=== PATIENT | female | born 1955 | race Two or more races ===

== ENCOUNTER 2017-01-04 11:14 | Outpatient (CLI) | payer BC ==
[2017-01-04 17:48] LABS: BASOPHILS % (AUTO) 0.5 %; EOSINOPHILS # (AUTO) 0.2 10^3/uL (0.0-0.7); EOSINOPHILS % (AUTO) 3.2 %; HCT - HEMATOCRIT 39.1 % (37.0-47.0); HGB - HEMOGLOBIN 12.7 g/dL (12.0-16.0); LYMPHOCYTES # (AUTO) 1.9 10^3/uL (1.5-3.5); LYMPHOCYTES % (AUTO) 28.9 %; MEAN CORPUSCULAR HEMOGLOBIN 26.3 pg (27.0-31.0); MEAN CORPUSCULAR HGB CONC 32.5 g/dL (32.0-36.0); MEAN PLATELET VOLUME 8.4 fL (7.9-10.8); MONOCYTES # (AUTO) 0.5 10^3/uL (0.0-1.0); MONOCYTES % (AUTO) 7.1 %; NEUTROPHILS % (AUTO) 60.3 %; RED BLOOD COUNT 4.83 10^6/uL (4.20-5.40); RED CELL DISTRIBUTION WIDTH 13.6 % (12.0-15.0); UNCORRECTED WHITE BLOOD COUNT 6.6 x10^3/uL; WHITE BLOOD COUNT 6.6 x10^3/uL (4.8-10.8)
[2017-01-04 18:00] LABS: ALBUMIN/GLOBULIN RATIO 1.6 (1.0-2.2); BILIRUBIN,TOTAL 0.7 mg/dL (0.2-1.0); BUN - BLOOD UREA NITROGEN 13 mg/dL (6-20); CALCIUM 9.1 mg/dL (8.5-10.3); CARBON DIOXIDE - CO2 27 mmol/L (21-32); CHLORIDE 104 mmol/L (101-111); CHOL/HDL RATIO 4.1 (<4.4); CHOLESTEROL 193 mg/dL; CREATININE 0.8 mg/dL (0.4-1.0); GFR - MDRD 73 (>89); GLUCOSE 97 mg/dL (70-100); HDL CHOLESTEROL 47 mg/dL; LDL/HDL RATIO 2.8 (<4.4); POTASSIUM 4.5 mmol/L (3.5-5.0); SODIUM 137 mmol/L (135-145); TOTAL PROTEIN 6.8 g/dL (6.7-8.2); TRIGLYCERIDES 72 mg/dL; VLDL CHOLESTEROL 14 mg/dL
[2017-01-04 18:11] LABS: TOTAL T3 1.67 ng/mL (0.87-1.78)
[2017-01-04 18:22] LABS: THYROID STIMULATING HORMONE 0.08 uIU/mL (0.34-5.60)
== END 2017-01-04 11:15 | disposition home or self-care (01) ==
LOC: LAB.F 11:14
PROVIDERS: ATTEND Physician Assistant
DX: E55.9 Vitamin D deficiency, unspecified (principal); M81.0 Age-related osteoporosis without current pathological fracture; E07.9 Disorder of thyroid, unspecified; E78.5 Hyperlipidemia, unspecified
CPT/HCPCS: 36415; 80053; 80061; 84439; 84443; 84480; 84481; 84482; 85025

== ENCOUNTER 2017-02-02 13:44 | Outpatient (CLI) | payer BC | END 2017-02-02 13:45 | disposition home or self-care (01) | LOC: LAB.F 13:44 | PROVIDERS: ATTEND Physician Assistant | DX: E55.9 Vitamin D deficiency, unspecified (principal) | CPT/HCPCS: 36415; 82306 ==

== ENCOUNTER 2017-03-28 13:12 | Outpatient (CLI) | payer BC ==
--- NOTE | 2017-03-29 16:49 | Mammography Report ---
DIGITAL SCREENING MAMMOGRAM: 03/28/2017 CLINICAL INDICATION: A 61-year-old nulliparous patient for screening. COMPARISON: 03/2016, 04/2013, 12/2011, 08/2010. TECHNIQUE: Routine CC and MLO projections as well as bilateral laterally exaggerated craniocaudal vi ews were obtained of the breasts. FINDINGS: Parenchymal tissue within both breasts is extremely dense, which lowers the sensitivity of mammography; however, there are no dominant masses, suspicious microcalcifications, or secondary sig ns of malignancy. In comparison to the previous studies, there are no significant changes. IMPRESSION: No mammographic evidence of malignancy. PLAN: Screening mammography is recommended annually. BIRADS category 1 - negative. STANDARD QUALIFYING STATEMENTS 1. This examination was reviewed with the aid of Computed-Aided Detection (CAD). 2. A negative or benign imaging report should not delay biopsy if clinically suspicious findings are present. Consider surgical consultation if warranted. More than 5% of cancers are not identified b y imaging. 3. Dense breasts may obscure an underlying neoplasm. JOB #: [id number] EXT JOB #:[id number]
== END 2017-03-28 13:13 | disposition home or self-care (01) ==
LOC: DI 13:12
PROVIDERS: ATTEND Physician Assistant
DX: Z12.31 Encounter for screening mammogram for malignant neoplasm of breast (principal)
CPT/HCPCS: 77067

== ENCOUNTER 2017-03-28 13:12 | Outpatient (CLI) | payer BC ==
--- NOTE | 2017-03-29 15:09 | DEXA Report ---
DEXA SCAN: 03/28/2017 CLINICAL INDICATION: Postmenopausal. TECHNIQUE: Dual energy x-ray absorptiometry (DXA) was performed on a [employer] system. Regions measured are the AP spine, femoral neck, and, if needed, forearm. COMPARISON: 03/13/2016. In accordance with the International Society for Clinical Densitometry (ISCD) guidelines, data from previous exams may be reanalyzed using current recommendations and techniques. This is done to allow a more accurate basis for comparison with the current study. FINDINGS The data for the lumbar spine is as follows: REGION BMD (g/cm/cm) T-SCORE Z-SCORE L1 0.833 -2.5 -1.0 L2 1.055 -1.2 0.2 L3 1.089 -0.9 0.5 L4 1.079 -1.0 0.4 TOTAL 1.025 -1.3 0.1 NOTE: All evaluable vertebrae are used for classification. The data for the hip is as follows: REGION BMD (g/cm/cm) T-SCORE Z-SCORE Neck 0.859 -1.3 0.1 TOTAL 0.927 -0.6 0.4 NOTE: The femoral neck or total proximal femur, whichever is lowest, is used for classification. DXA RESULTS SUMMARY: Spine SCAN DATE AGE BMD T-SCORE BMD CHANGE VS BASELINE BMD CHANGE VS PREVIOUS 03/28/2017 61 1.025 --- -0.022 -2.1 03/13/2016 60 1.047 --- --- --- * Denotes significant change at the 95% confidence level. Denotes dissimilar scan types or analysis methods. DXA RESULTS SUMMARY: Total hip SCAN DATE AGE BMD T-SCORE BMD CHANGE VS BASELINE BMD CHANGE VS PREVIOUS 03/28/2017 61 0.927 --- 0.017 1.9 03/13/2017 60 0.910 --- --- --- * Denotes significant change at the 95% confidence level. Denotes dissimilar scan types or analysis methods. IMPRESSION 1. THE WHO CLASSIFICATION BASED ON THE INTERNATIONAL REFERENCE STANDARD IS OSTEOPENIA. THE FRACTURE RISK IS INCREASED. 2. THERE HAS BEEN NO STATISTICALLY SIGNIFICANT INTERVAL CHANGE FROM 03/13/2016. RECOMMENDATION: Patients with diagnosis of osteoporosis or osteopenia should have regular bone mineral density assessment. For those eligible for Medicare, routine testing is allowed once every 2 years. Testing frequency can be increased for patients who have rapidly progressing disease or for those who are receiving medical therapy to restore bone mass. COMMENT: World Health Organization (WHO) definitions for osteoporosis and osteopenia: NORMAL BMD: T-score at -1.0 or higher, fracture risk is low. OSTEOPENIA BMD: T-score between -1.0 and -2.5, fracture risk is increased. OSTEOPOROSIS BMD: T-score at -2.5 or lower, fracture risk high. National Osteoporosis Foundation recommends: 1. Obtain adequate dietary calcium (at least 1200 mg per day) and vitamin D (400 -800 international units per day). 2. Participate, as appropriate, in regular weightbearing and muscle- strengthening exercise. 3. Avoid tobacco use and reduce alcohol and caffeine intake. 4. For more detailed information see the website at www.NOF.org. MTDD
== END 2017-03-28 13:13 | disposition home or self-care (01) ==
LOC: DI 13:12
PROVIDERS: ATTEND Physician Assistant
DX: M85.89 Other specified disorders of bone density and structure, multiple sites (principal)
CPT/HCPCS: 77080

== ENCOUNTER 2017-04-11 12:47 | Outpatient (CLI) | payer BC ==
[2017-04-11 17:59] LABS: BASOPHILS % (AUTO) 0.5 %; EOSINOPHILS # (AUTO) 0.2 10^3/uL (0.0-0.7); EOSINOPHILS % (AUTO) 3.8 %; HCT - HEMATOCRIT 40.3 % (37.0-47.0); LYMPHOCYTES # (AUTO) 1.5 10^3/uL (1.5-3.5); LYMPHOCYTES % (AUTO) 25.9 %; MEAN CORPUSCULAR HEMOGLOBIN 26.3 pg (27.0-31.0); MEAN CORPUSCULAR HGB CONC 32.4 g/dL (32.0-36.0); MEAN CORPUSCULAR VOLUME 81.1 fL (81.0-99.0); MEAN PLATELET VOLUME 8.5 fL (7.9-10.8); MONOCYTES # (AUTO) 0.4 10^3/uL (0.0-1.0); MONOCYTES % (AUTO) 6.5 %; NEUTROPHILS # (AUTO) 3.8 10^3/uL (1.5-6.6); NEUTROPHILS % (AUTO) 63.3 %; RED BLOOD COUNT 4.97 10^6/uL (4.20-5.40); RED CELL DISTRIBUTION WIDTH 13.4 % (12.0-15.0)
[2017-04-11 18:19] LABS: ALBUMIN/GLOBULIN RATIO 1.5 (1.0-2.2); BILIRUBIN,TOTAL 0.7 mg/dL (0.2-1.0); BUN - BLOOD UREA NITROGEN 11 mg/dL (6-20); CALCIUM 9.2 mg/dL (8.5-10.3); CARBON DIOXIDE - CO2 26 mmol/L (21-32); CHLORIDE 104 mmol/L (101-111); CHOLESTEROL 207 mg/dL; CREATININE 0.8 mg/dL (0.4-1.0); GFR - MDRD 73 (>89); GLUCOSE 97 mg/dL (70-100); HDL CHOLESTEROL 52 mg/dL; LDL/HDL RATIO 2.7 (<4.4); SODIUM 138 mmol/L (135-145); TOTAL PROTEIN 7.3 g/dL (6.7-8.2); TRIGLYCERIDES 70 mg/dL; VLDL CHOLESTEROL 14 mg/dL
[2017-04-11 18:32] LABS: THYROID STIMULATING HORMONE < 0.08 uIU/mL (0.34-5.60)
[2017-04-11 18:37] LABS: TOTAL T3 2.04 ng/mL (0.87-1.78)
== END 2017-04-11 12:48 | disposition home or self-care (01) ==
LOC: LAB.F 12:47
PROVIDERS: ATTEND Physician Assistant
DX: Z00.00 Encounter for general adult medical examination without abnormal findings (principal); R94.4 Abnormal results of kidney function studies; E78.5 Hyperlipidemia, unspecified; M81.0 Age-related osteoporosis without current pathological fracture
CPT/HCPCS: 36415; 80053; 80061; 82306; 84439; 84443; 84480; 84481; 84482; 85025

== ENCOUNTER 2017-05-03 08:00 | Outpatient (CLI) | payer BC | END 2017-05-03 23:59 | disposition home or self-care (01) | LOC: LAB.F 08:00 | PROVIDERS: ATTEND Physician Assistant | DX: R94.4 Abnormal results of kidney function studies (principal) | CPT/HCPCS: 84156 ==

== ENCOUNTER 2017-05-21 13:21 | Outpatient (CLI) | payer BC ==
--- NOTE | 2017-05-21 14:25 | Ultrasound Report ---
RENAL ULTRASOUND WITH DOPPLER: 05/21/2017 CLINICAL INDICATION: Abnormal renal function. TECHNIQUE: Real-time scanning was performed with sales representative jewelry static images obtained with Doppler. FINDINGS: The right kidney measures 10.5 x 5.9 x 5.1 cm. A small right extrarenal pelvis is incident ally noted. No focal solid renal lesion, perinephric collection, or hydronephrosis is present. Resist kirill indices are normal, varying from 0.63 to 0.68. The left kidney measures 11.0 x 5.4 x 4.7 cm. No hydronephrosis, focal renal lesion, or perinephric c ollection is seen. Resistive indices are normal, varying from 0.61 to 0.65. Prevoid, the urinary bladder measures 9.4 x 9.0 x 8.6 cm, yielding a prevoid volume of 378 mL. Bilate ral ureteral jets are visualized. No focal bladder lesion is identified. Postvoid residual is 11 mL. IMPRESSION: NORMAL RENAL ULTRASOUND. JOB #: [id number] EXT JOB #:[id number]
== END 2017-05-21 13:22 | disposition home or self-care (01) ==
LOC: DI 13:21
PROVIDERS: ATTEND Physician Assistant
DX: R94.4 Abnormal results of kidney function studies (principal)
CPT/HCPCS: 76770; 93975

== ENCOUNTER 2017-06-12 08:00 | Outpatient (CLI) | payer BC | END 2017-06-12 23:59 | disposition home or self-care (01) | LOC: LAB.R 08:00 | PROVIDERS: ATTEND Physician Assistant | DX: Z00.00 Encounter for general adult medical examination without abnormal findings (principal) | CPT/HCPCS: 82270 ==

== ENCOUNTER 2017-09-13 15:55 | Outpatient (CLI) | payer BC ==
[2017-09-13 17:50] LABS: CALCIUM 9.4 mg/dL (8.5-10.3); CREATININE 0.7 mg/dL (0.4-1.0)
== END 2017-09-13 15:56 | disposition home or self-care (01) ==
LOC: LAB.F 15:55
PROVIDERS: ATTEND Physician Assistant
DX: R94.4 Abnormal results of kidney function studies (principal)
CPT/HCPCS: 36415; 80048

== ENCOUNTER 2018-04-04 10:17 | Outpatient (CLI) | payer BC ==
[2018-04-04 18:40] LABS: THYROID STIMULATING HORMONE 0.11 uIU/mL (0.34-5.60)
[2018-04-04 18:42] LABS: FREE T4 (FREE THYROXINE) 0.67 ng/dL (0.58-1.64)
[2018-04-04 18:47] LABS: TOTAL T3 1.46 ng/mL (0.87-1.78)
[2018-04-04 18:59] LABS: AST ASPARTATE AMINOTRANSFERASE 27 IU/L (10-42)
[2018-04-04 19:00] LABS: ALBUMIN 4.3 g/dL (3.2-5.5); ALBUMIN/GLOBULIN RATIO 1.5 (1.0-2.2); ALKALINE PHOSPHATASE 68 IU/L (42-121); ALT ALANINE AMINOTRANSFERASE 25 IU/L (10-60); BILIRUBIN,TOTAL 0.8 mg/dL (0.2-1.0); BUN - BLOOD UREA NITROGEN 16 mg/dL (6-20); CARBON DIOXIDE - CO2 29 mmol/L (21-32); CHLORIDE 100 mmol/L (101-111); CHOL/HDL RATIO 4.4 (<4.4); CHOLESTEROL 229 mg/dL; CREATININE 0.7 mg/dL (0.4-1.0); GFR - MDRD 85 (>89); GLUCOSE 91 mg/dL (70-100); HDL CHOLESTEROL 52 mg/dL; LDL CHOLESTEROL,CALCULATED 160 mg/dL; LDL/HDL RATIO 3.1 (<4.4); SODIUM 135 mmol/L (135-145); TOTAL PROTEIN 7.1 g/dL (6.7-8.2); VLDL CHOLESTEROL 17 mg/dL
== END 2018-04-04 10:18 | disposition home or self-care (01) ==
LOC: LAB.F 10:17
PROVIDERS: ATTEND Physician Assistant
DX: E78.5 Hyperlipidemia, unspecified (principal); E07.9 Disorder of thyroid, unspecified
CPT/HCPCS: 36415; 80053; 80061; 83721; 84439; 84443; 84480; 84481; 84482

== ENCOUNTER 2019-04-26 13:47 | Emergency (ER) | payer BC ==
[2019-04-26 14:11] VITALS: BP 180/90
--- NOTE | 2019-04-26 14:19 | ED Physician Documentation ---
PD HPI OPHTHO - Stated complaint Stated Complaint: RT EYE INJ - Chief complaint Chief Complaint: Heent - History obtained from History obtained from: Patient - History of Present Illness Timing - onset: Yesterday Timing - details: Abrupt onset Pain level now: 5 Location: Right Associated symptoms: Redness, Headache. No: Matting, FB sensation, Double vision, Decreased vision, Loss of vision Contributing factors: Blunt trauma. No: Exposed to conjunctivitis, Wears contacts Similar symptoms before: Has not had sx before Recently seen: Not recently seen - Additional information Additional information: This is a 63-year-old woman who was cleaning out underneath her desk yesterday and there was an elastic lanyard for a name tag. She grabbed it and pulled it was, hung up on something and then it let loose and hit her in the right lower eyelid in the right eye. She said that she saw a "circular saw blades for a little bit". But now her vision seems to be okay other than some underlying issues she is already been dealing with since she had intraocular lens implants. The lower eyelid did bleed and she held pressure. She sees a "divot" out of the lower lid. She took some Tylenol last night for the pain and has a bit of a right-sided headache that she rates now at 4-5 out of 10. She does wear glasses in low light situations but not contacts. Her last tetanus vaccine was greater than 10 years ago. Review of Systems Eyes: reports: Irritation. denies: Loss of vision, Discharge GI: denies: Nausea Neurologic: reports: Headache PD PAST MEDICAL HISTORY - Past Medical History HEENT: Other (Intraocular lens implants bilaterally) - Present Medications Home Medications: Ambulatory Orders Medication Instructions Recorded Confirmed Thyroid,Pork [Drain Thyroid] 15 mg PO 04/26/19 - Allergies Allergies/Adverse Reactions: Allergies Allergy/AdvReac Type Severity Reaction Status Date / Time No Known Drug Allergies Allergy Verified 04/26/19 14:07 PD ED PE NORMAL - Vitals Vital signs reviewed: Yes - General General: Alert and oriented X 3, No acute distress, Well developed/nourished - HEENT HEENT: PERRL, EOMI, Other (There is a subconjunctival hemorrhage 25% of the c onjunctiva on the inferior outer aspect. The lower right eyelid does have an abrasion with a scab overlying it directly on the lid margin but no laceration. There is no hyphema. The retina that is visible has normal vasculature and no obvious hemorrhage in the vitreous.) Results - Vitals Vitals: Vital Signs - 24 hr 04/26/19 14:08 Temperature 36.6 C Heart Rate 81 Respiratory 18 Rate Blood Pressure 180/90 H O2 Saturation 100 Oxygen O2 Source Room air PD MEDICAL DECISION MAKING - ED course Complexity details: d/w patient ED course: No evidence of globe rupture. There is no hyphema. Patient is recommended to use Lacri-Lube to help moisten and just soothe the injury. She is given a note to be off work today and tomorrow. Follow-up if she notices any visual changes. Departure - Departure Disposition: 01 Home, Self Care Clinical Impression: Subconjunctival hemorrhage of right eye Abrasion of eyelid, right Qualifiers: Encounter type: initial encounter Qualified Code(s): S00.211A - Abrasion of right eyelid and periocular area, initial encounter Condition: Good Instructions: ED Eye Injury Subconj Hemorrhage Follow-Up: Eduar Aguayo MD [Primary Care Provider] - Ophthalomolgist,Your [Other] Comments: Use Lacri-Lube [id number] just to soothe the irritation of the eye and the lower eyelid. If you start experiencing any visual changes such as flashing lights or haziness he should be immediately reevaluated. Follow-up with your reservations specialist for recheck as needed. Forms: Activity restrictions
[2019-04-26] MEDS ORDERED: TETANUS/DIPHTHERIA/PERTUSSIS 0.5 ML SYRINGE IM ONE (14:34)
== END 2019-04-26 14:51 | disposition home or self-care (01) ==
LOC: ED 13:47
DX: S00.211A Abrasion of right eyelid and periocular area, initial encounter (principal); H11.31 Conjunctival hemorrhage, right eye; W20.8XXA Other cause of strike by thrown, projected or falling object, initial encounter; Y93.89 Activity, other specified; Z23 Encounter for immunization
CPT/HCPCS: 90471; 99283

== ENCOUNTER 2019-05-03 22:20 | Emergency (ER) | payer BC ==
[2019-05-03 22:39] VITALS: BP 168/90
--- NOTE | 2019-05-03 23:05 | ED Physician Documentation ---
PD HPI OPHTHO - Stated complaint Stated Complaint: R EYE PX - Chief complaint Chief Complaint: Heent - History obtained from History obtained from: Patient - History of Present Illness Timing - onset: How many days ago (several days) Timing - duration: Days (3) Timing - details: Abrupt onset Pain level max: 3 Pain level now: 0 Location: Right Associated symptoms: No: Redness, Swelling, Tearing, Discharge, Double vision, Decreased vision Contributing factors: Blunt trauma Recently seen: Not recently seen - Additional information Additional information: 63-year-old female presents the emergency department stating that she was hit in the right eye by the end of the lanyard a few days ago. She states that tonight she noticed that her vision in the right eye appears to be monochromatic. No loss of vision. She has had an intraocular lens replacement approximately 10 years ago. Nothing makes it better or worse Review of Systems Constitutional: denies: Fever, Chills Throat: denies: Sore throat GI: denies: Vomiting Skin: denies: Rash PD PAST MEDICAL HISTORY - Past Medical History Past Medical History: No HEENT: Other - Past Surgical History Past Surgical History: Yes HEENT: Other - Present Medications Home Medications: Ambulatory Orders Medication Instructions Recorded Confirmed Thyroid,Pork [[place] Thyroid] 15 mg PO 04/26/19 - Allergies Allergies/Adverse Reactions: Allergies Allergy/AdvReac Type Severity Reaction Status Date / Time No Known Drug Allergies Allergy Verified 04/26/19 14:07 - Social History Does the pt smoke?: No Smoking Status: Never smoker PD ED PE NORMAL - Vitals Vital signs reviewed: Yes - General General: Alert and oriented X 3, No acute distress - HEENT HEENT: Moist mucous membranes, Other (R eye - Normal external exam. Pupils equal round reactive to light. Bedside ultrasound reveals what appears to be a small hematoma under the anterior inferior lateral aspect of the right eye. Fovea is not involved) - Neck Neck: Supple, no meningeal sign - Derm Derm: Warm and dry - Neuro Neuro: Alert and oriented X 3 Results - Vitals Vitals: Vital Signs - 24 hr 05/03/19 22:33 Temperature 37 C Heart Rate 107 H Respiratory 16 Rate Blood Pressure 168/90 H O2 Saturation 100 Oxygen O2 Source Room air PD MEDICAL DECISION MAKING - ED course Complexity details: considered differential, d/w patient ED course: Patient with what appears to be a loss of color vision following traumatic eye injury. We will have her follow-up with her put in beat adjuster for further care. Does not appear to be a Retinal detachment. Fovea is not involved. Does appear to have a small hematoma under the area of injury. Pupils are equal round and reactive to light. No evidence of lens dislocation. Patient counseled regarding signs and symptoms for which I believe and urgent re-evaluation would be necessary. Patient with good understanding of and agreement to plan and is comfortable going home at this time This document was made in part using voice recognition software. While efforts are made to proofread this document, sound alike and grammatical errors may occur. Departure - Departure Disposition: 01 Home, Self Care Clinical Impression: Color vision defect Condition: Good Instructions: Vision Probs Follow-Up: Calixto Chandler MD [Provider Admit Priv/Credential] - Within 3 Days Comments: Follow-up with an put in beat adjuster on Sunday or Sunday to have your vision checked. Return if you worsen. You can try [facility] or Dr. Chandler. Tell them you are having problems with your color vision after being struck in the eye. Discharge Date/Time: 05/03/19 23:12
== END 2019-05-03 23:12 | disposition home or self-care (01) ==
LOC: ED 22:20
DX: H53.50 Unspecified color vision deficiencies (principal); S00.11XA Contusion of right eyelid and periocular area, initial encounter; W22.8XXA Striking against or struck by other objects, initial encounter
CPT/HCPCS: 99281; 99282

== ENCOUNTER 2019-07-22 14:11 | Outpatient (CLI) | payer BC ==
--- NOTE | 2019-07-23 08:20 | XRAY Report ---
Reason: LOW BACK PAIN, M54.5 Procedure Date: 07/22/2019 Accession Number: [id number] / [id number] Procedure: XRS - Lumbar Spine 2 View CPT Code: Final Report FULL RESULT: EXAM: LUMBOSACRAL SPINE RADIOGRAPHY 3 VIEWS EXAM DATE: 07/22/2019 02:25 PM. CLINICAL HISTORY: Low back pain. COMPARISONS: None. TECHNIQUE: AP, lateral and coned lateral of the lumbosacral junction views. FINDINGS: Alignment: 6 mm degenerative anterolisthesis of L4 on L5 and 4 mm degenerative anterolisthesis of L3 on L4.. Bones: Five xee-vws-yenjbuy lumbar vertebral bodies are present. No fractures or bone lesions. Small vertebral body osteophytes at L1-L2, L3-L4 and L4-L5. Disks: Moderate narrowing at L4-L5 and mild narrowing at L1-L2 L2-L3 and L3-L4. Facets: Narrowing at L3-L4, L4-L5 and L5-S1. Sacroiliac Joints: Normal. Soft Tissues: Normal. The visualized bowel gas pattern is normal. IMPRESSION: Multilevel degenerative disk disease, spondylosis, and facet joint degenerative disease, most pronounced at L4-L5. 6 mm degenerative anterolisthesis of L4 on L5 and 4 mm degenerative anterolisthesis of L3 on L4. RADIA
== END 2019-07-22 14:12 | disposition home or self-care (01) ==
LOC: DI.S 14:11
PROVIDERS: ATTEND Family Medicine
DX: M51.36 Other intervertebral disc degeneration, lumbar region (principal); M47.816 Spondylosis without myelopathy or radiculopathy, lumbar region; M43.16 Spondylolisthesis, lumbar region
CPT/HCPCS: 72100

== ENCOUNTER 2019-08-01 15:21 | Outpatient (CLI) | payer BC ==
--- NOTE | 2019-08-04 09:07 | DEXA Report ---
Reason: OSTEOPOROSIS Procedure Date: 08/01/2019 Accession Number: [id number] / [id number] Procedure: DEX - Dexa Spine and/or Hip CPT Code: Final Report FULL RESULT: EXAM: Dexa Spine and/or Hip DATE: 08/01/2019 4:32 PM CLINICAL HISTORY: Osteopenia follow-up. History of steroid use. Postmenopausal. Thyroid replacement therapy. TECHNIQUE: Dual energy x-ray absorptiometry (DXA) was performed on a [employer] System. Regions measured are the AP Spine, femoral neck, and if needed forearm. COMPARISON: 03/28/2017 In accordance with the International Society for Clinical Densitometry (ISCD) guidelines, data from previous exams may be reanalyzed using current recommendations and techniques. This is done to allow a more accurate basis for comparison with the current study. FINDINGS: The data for the lumbar spine is as follows: BMD (g/cm/cm) T-SCORE Z-SCORE REGION L1 0.886 -2.0 -0.4 L2 1.008 -1.6 0.0 L3 1.064 -1.1 0.5 L4 1.021 -1.5 0.1 TOTAL 1.002 -1.5 0.2 NOTE: All evaluable vertebrae are used for classification The data for the hip is as follows: BMD (g/cm/cm) T-SCORE Z-SCORE REGION Neck 0.902 -1.0 0.5 TOTAL 0.898 -0.9 0.4 NOTE: The femoral neck or total proximal femur, whichever is lowest, is used for classification. DXA RESULTS SUMMARY: Spine SCAN DATE AGE BMD CHANGE VS CHANGE VS PREVIOUS PREVIOUS % [birth year]01[birth year]2019 [age] 1.002 -0.023 -2.2 03/28/2017 61.8 1.025 -0.022 -2.1 03/13/2016 [age] 1.047 * Denotes significant change at the 95% confidence level. Denotes dissimilar scan types or analysis methods. DXA RESULTS SUMMARY: Hip SCAN DATE AGE BMD CHANGE VS CHANGE VS PREVIOUS PREVIOUS % [birth year]2019 [age] 0.898 -0.029 -3.1 03/28/2017 61.8 0.927 0.017 1.9 03/13/2016 [age] 0.910 * Denotes significant change at the 95% confidence level. Denotes dissimilar scan types or analysis methods. IMPRESSION: THE WHO CLASSIFICATION BASED ON THE INTERNATIONAL REFERENCE STANDARD IS OSTEOPENIA. THE FRACTURE RISK IS INCREASED. RECOMMENDATION: Patients with diagnosis of osteoporosis or osteopenia should have regular bone mineral density assessment. For those eligible for Medicare, routine testing is allowed once every 2 years. Testing frequency can be increased for patients who have rapidly progressing disease or for those who are receiving medical therapy to restore bone mass. COMMENT: World Health Organization (WHO) definitions for osteoporosis and osteopenia: NORMAL BMD: T-score at -1.0 or higher, fracture risk is low OSTEOPENIA BMD: T-score between -1.0 and -2.5, fracture risk is increased. OSTEOPOROSIS BMD: T-score at -2.5 or lower, fracture risk is high. National Osteoporosis Foundation recommends: 1. Obtain adequate dietary calcium (at least 1200 mg per day) and vitamin D (400-800 international units per day). 2. Participate, as appropriate, in regular weightbearing and muscle-strengthening exercise. 3. Avoid tobacco use and reduce alcohol and caffeine intake. 4. For more detailed information see the website at www.NOF.org.
== END 2019-08-01 15:22 | disposition home or self-care (01) ==
LOC: DI 15:21
PROVIDERS: ATTEND Registered Nurse
DX: M85.89 Other specified disorders of bone density and structure, multiple sites (principal)
CPT/HCPCS: 77080

== ENCOUNTER 2019-08-01 15:22 | Outpatient (CLI) | payer BC ==
--- NOTE | 2019-08-04 13:05 | Mammography Report ---
Reason: ROUTINE MAMMO Procedure Date: 08/01/2019 Accession Number: [id number] / [id number] Procedure: BALJINDER - Screening Mammo w/Harry CPT Code: Final Report FULL RESULT: EXAM: Screening Mammo w/Harry DATE: 08/01/2019 4:18 PM CLINICAL HISTORY: Routine screening. Nulliparous patient. Maternal grandmother with breast cancer. TECHNIQUE: (B) - Bilateral CC and MLO views were obtained. COMPARISON: 03/28/2017, 03/13/2016, 04/28/2013, 01/29/2012 PARENCHYMAL PATTERN: (VD) - The breasts demonstrate extremely dense parenchyma bilaterally, limiting the sensitivity of mammography. FINDINGS: No significant interval change. There are no suspicious masses, calcifications, or areas of distortion. IMPRESSION: Negative examination. BI-RADS category 1. RECOMMENDATION: (ANNUAL) - Recommend routine annual screening mammography. BI-RADS CATEGORY: (1) - Negative. STANDARD QUALIFYING STATEMENTS: 1. This examination was not reviewed with the aid of Computer-Aided Detection (CAD). 2. A negative or benign imaging report should not preclude biopsy if clinically suspicious findings are present. 3. Dense breasts may obscure an underlying neoplasm. 4. This examination was reviewed with the aid of 3D breast imaging (tomosynthesis).
== END 2019-08-01 15:23 | disposition home or self-care (01) ==
LOC: DI 15:22
PROVIDERS: ATTEND Registered Nurse
DX: Z12.31 Encounter for screening mammogram for malignant neoplasm of breast (principal); Z80.3 Family history of malignant neoplasm of breast
CPT/HCPCS: 77063; 77067

== ENCOUNTER 2019-12-22 16:54 | Outpatient (CLI) | payer BC ==
[2019-12-22 20:12] LABS: ALBUMIN 4.5 g/dL (3.2-5.5); ALBUMIN/GLOBULIN RATIO 1.6 (1.0-2.2); BILIRUBIN,TOTAL 0.6 mg/dL (0.2-1.0); CALCIUM 9.5 mg/dL (8.5-10.3); CREATININE 0.8 mg/dL (0.4-1.0); TOTAL PROTEIN 7.3 g/dL (6.7-8.2)
== END 2019-12-22 23:59 | disposition home or self-care (01) ==
LOC: LAB.S 16:54
PROVIDERS: ATTEND Physician Assistant Medical
DX: M79.661 Pain in right lower leg (principal); I73.9 Peripheral vascular disease, unspecified
CPT/HCPCS: 36415; 80053; 83735

== ENCOUNTER 2019-12-23 21:50 | Outpatient (CLI) | payer BC ==
--- NOTE | 2019-12-24 08:33 | Ultrasound Report ---
PROCEDURE: Duplex Ext Veins Right INDICATIONS: RIGHT CALF PAIN TECHNIQUE: Real-time imaging, as well as color and pulse Doppler interrogation, were performed of the lower extr emity deep veins from the inguinal ligament to the popliteal fossa. COMPARISON: Ultrasound arterial Doppler 12/23/2019 FINDINGS: The deep veins are normally compressible, and free of intraluminal thrombus. Color and pu lse Doppler demonstrate normal phasic intraluminal flow. There is normal augmentation response to di stal compression maneuver. IMPRESSION: No deep venous thrombosis. The above findings are concordant with preliminary report. Reviewed by: Nevin López MD on 12/24/2019 8:32 AM PDT Approved by: Nevin López MD on 12/24/2019 8:32 AM PDT Station ID: [id number]
--- NOTE | 2019-12-24 08:33 | Ultrasound Report ---
PROCEDURE: Duplex Lwr Ext Arterial RT INDICATIONS: RIGHT CALF PAIN TECHNIQUE: Color and pulse Doppler interrogation was performed of the right lower extremity arterial system, wit h image documentation. COMPARISON: Ultrasound venous duplex FINDINGS: Common femoral artery: 99 cm/sec, with triphasic flow. Deep femoral artery: 86 cm/sec, with triphasic flow. Proximal superficial femoral artery: 84 cm/sec, with triphasic flow. Mid superficial femoral artery: 100 cm/sec, with triphasic flow. Distal superficial femoral artery: 99 cm/sec, with triphasic flow. Popliteal artery: 121 cm/sec, with triphasic flow. Posterior tibial artery: 87 cm/sec, with triphasic flow. Anterior tibial artery/dorsalis pedis: 87/75 cm/sec, with triphasic flow. Mckeon-scale imaging description: Triphasic flow without significant arterial calcifications IMPRESSION: 1. No areas of hemodynamically significant stenosis, vascular occlusion or aneurysmal dilation. The above findings are concordant with preliminary report. Reviewed by: Nevin López MD on 12/24/2019 8:32 AM PDT Approved by: Nevin López MD on 12/24/2019 8:32 AM PDT Station ID: [id number]
== END 2019-12-23 21:51 | disposition home or self-care (01) ==
LOC: DI 21:50
PROVIDERS: ATTEND Physician Assistant Medical
DX: M79.661 Pain in right lower leg (principal); M25.561 Pain in right knee; I73.9 Peripheral vascular disease, unspecified

== ENCOUNTER 2020-05-17 12:42 | Outpatient (CLI) | payer BC | END 2020-05-17 12:43 | disposition home or self-care (01) | LOC: COV 12:42 | PROVIDERS: ATTEND Family Medicine | DX: Z20.828 Contact with and (suspected) exposure to other viral communicable diseases (principal) ==

== ENCOUNTER 2020-08-18 10:24 | Outpatient (CLI) | payer BC ==
[2020-08-18 15:38] LABS: BASOPHILS % (AUTO) 0.5 %; EOSINOPHILS # (AUTO) 0.3 10^3/uL (0.0-0.7); EOSINOPHILS % (AUTO) 4.2 %; HGB - HEMOGLOBIN 11.6 g/dL (12.0-16.0); LYMPHOCYTES # (AUTO) 1.7 10^3/uL (1.5-3.5); LYMPHOCYTES % (AUTO) 26.4 %; MEAN CORPUSCULAR HEMOGLOBIN 26.3 pg (27.0-31.0); MEAN CORPUSCULAR HGB CONC 30.9 g/dL (32.0-36.0); MONOCYTES # (AUTO) 0.4 10^3/uL (0.0-1.0); MONOCYTES % (AUTO) 6.6 %; NEUTROPHILS # (AUTO) 3.9 10^3/uL (1.5-6.6); PLT - PLATELET COUNT 345 10^3/uL (130-450); RED BLOOD COUNT 4.41 10^6/uL (4.20-5.40); RED CELL DISTRIBUTION WIDTH 13.2 % (12.0-15.0); WHITE BLOOD COUNT 6.3 x10^3/uL (4.8-10.8)
[2020-08-18 15:56] LABS: ALBUMIN 3.8 g/dL (3.2-5.5); ALBUMIN/GLOBULIN RATIO 1.5 (1.0-2.2); ALKALINE PHOSPHATASE 51 IU/L (42-121); ALT ALANINE AMINOTRANSFERASE 35 IU/L (10-60); AST ASPARTATE AMINOTRANSFERASE 32 IU/L (10-42); BILIRUBIN,TOTAL 0.6 mg/dL (0.2-1.0); BUN - BLOOD UREA NITROGEN 13 mg/dL (6-20); CALCIUM 8.7 mg/dL (8.5-10.3); CARBON DIOXIDE - CO2 22 mmol/L (21-32); CHLORIDE 103 mmol/L (101-111); CHOL/HDL RATIO 3.6 (<4.4); CHOLESTEROL 193 mg/dL; CREATININE 0.7 mg/dL (0.4-1.0); GLUCOSE 92 mg/dL (70-100); HDL CHOLESTEROL 53 mg/dL; LDL CHOLESTEROL,CALCULATED 129 mg/dL; LDL/HDL RATIO 2.4 (<4.4); TOTAL PROTEIN 6.4 g/dL (6.7-8.2); VLDL CHOLESTEROL 11 mg/dL
[2020-08-18 16:53] LABS: FREE T4 (FREE THYROXINE) 0.81 ng/dL (0.58-1.64)
== END 2020-08-18 10:25 | disposition home or self-care (01) ==
LOC: LAB.S 10:24
PROVIDERS: ATTEND Registered Nurse
DX: E78.5 Hyperlipidemia, unspecified (principal); K58.9 Irritable bowel syndrome, unspecified; J45.909 Unspecified asthma, uncomplicated; E03.9 Hypothyroidism, unspecified; E55.9 Vitamin D deficiency, unspecified
CPT/HCPCS: 36415; 80053; 80061; 82306; 82652; 83721; 84439; 84443; 85025

== ENCOUNTER 2020-09-07 14:38 | Outpatient (CLI) | payer BC ==
[2020-09-07] MEDS ORDERED: IOVERSOL 320 100 ML VIAL IVP ONE ×2 (15:00→18:10)
--- NOTE | 2020-09-07 16:17 | CT Report ---
PROCEDURE: ANGIO HEAD W/WO INDICATIONS: FAM HIST OF BRAIN ANEURYSM W/STROKE CONTRAST: IV CONTRAST: Optiray 320 ml: 80 PO CONTRAST: *NO PO CONTRAST TECHNIQUE: Precontrast 4.5 mm thick angled axial sections acquired from the foramen magnum to the vertex. Afte r the administration of intravenous contrast, 1 mm thick sections acquired through the [place] of [place] is. Postcontrast 4.5 mm thick sections then re-acquired from the foramen magnum to the vertex. 3-di mensional leptlai-ucfedhvfs-pgzfjiwcff (MIP) and/or volume rendering reformats were acquired of the c entral intracranial vasculature. For radiation dose reduction, the following was used: automated ex posure control, adjustment of mA and/or kV according to patient size. COMPARISON: FINDINGS: Image quality: Excellent. Anterior circulation: Intracranial internal carotid arteries are normal in size and flow. The flow within the paired anterior cerebral arteries is normal and symmetric. The flow within the middle cer ebral arteries is normal and symmetric. The anterior communicating artery is seen. No aneurysms are seen. Posterior circulation: Visualized portions of the vertebral arteries demonstrate normal caliber. Rig ht vertebral artery appears to terminate in a posterior inferior cerebellar artery. Basilar artery is patent. Flow within the posterior cerebral arteries is normal and symmetric. No aneurysms are seen. CSF spaces: Ventricles are normal in size and shape. Basal cisterns are patent. No extra-axial flu id collections. Brain: No midline shift. No intracranial bleeds or masses. Mckeon-white matter interface appears int act. Skull and face: Calvarium and facial bones appear intact, without suspicious lesions. Sinuses: Visualized sinuses and mastoids are clear. IMPRESSION: 1. Negative cerebral MR angiography. Reviewed by: Andres Kee MD on 09/07/2020 4:16 PM PST Approved by: Andres Kee MD on 09/07/2020 4:16 PM PST Station ID: [id number]
--- NOTE | 2020-09-07 16:19 | CT Report ---
PROCEDURE: ANGIO NECK W INDICATIONS: FAM HIST OF BRAIN ANEURYSM W/STROKE CONTRAST: IV CONTRAST: Optiray 320 ml: 80 PO CONTRAST: *NO PO CONTRAST TECHNIQUE: After the administration of intravenous contrast, 1.5 mm axial sections acquired from the aortic arch to the [place] of [place]. Coronal 3-D maximum intensity projection (MIP) and/or volume rendering ref ormats were then performed. For radiation dose reduction, the following was used: automated exposur e control, adjustment of mA and/or kV according to patient size. COMPARISON: None. FINDINGS: Image quality: Excellent. Carotid system: The great vessels demonstrate a conventional anatomy as they arise from the aortic a [facility]. The origins of the common carotid arteries appear patent. The common carotid arteries demonstr ate normal calibers and courses. The bifurcation regions appear normal bilaterally. The internal ca rotid arteries demonstrate normal caliber and course. Posterior circulation: The origins of the vertebral arteries appear patent. The more superior porti ons of the vertebral arteries demonstrate normal course and caliber. Right vertebral artery terminate s in a posterior inferior cerebellar artery. Basilar artery is patent. Soft tissues: Visualized neck soft tissues demonstrate no suspicious abnormalities. The thyroid gla nd is surgically absent. Bones: No suspicious bony lesions. Visualized cervical spine appears normally aligned. IMPRESSION: Negative CT angiography of the neck. No internal carotid artery stenosis. Patent bilateral vertebral arteries. The estimate of stenosis included in the report of the imaging study was calculated using the NASCET method Reviewed by: Andres Kee MD on 09/07/2020 4:18 PM PST Approved by: Andres Kee MD on 09/07/2020 4:18 PM PST Station ID: [id number]
== END 2020-09-07 14:39 | disposition home or self-care (01) ==
LOC: DI 14:38
PROVIDERS: ATTEND Registered Nurse
DX: Z13.6 Encounter for screening for cardiovascular disorders (principal); Z82.3 Family history of stroke
CPT/HCPCS: 70496; 70498; Q9967

== ENCOUNTER 2020-09-12 14:26 | Outpatient (CLI) | payer BC ==
--- NOTE | 2020-09-14 12:50 | Mammography Report ---
BILATERAL DIGITAL SCREENING MAMMOGRAM 3D/2D WITH EXAGGERATED CC: 09/12/2020 CLINICAL: Routine screening. Routine screening. Comparison is made to exams dated: 08/01/2019 mammogram, 03/28/2017 mammogram, 03/13/2016 mammogram, mammogram, 01/29/2012 mammogram, and 08/03/2010 mammogram - [facility]. The tissue of both breasts is heterogeneously dense. This may lower the sensitivity of mammography. No significant masses, calcifications, or other findings are seen in either breast. There has been no significant interval change. IMPRESSION: NEGATIVE There is no mammographic evidence of malignancy. A 1 year screening mammogram is recommended. This exam was interpreted at Station ID: [id number]. NOTE: For mammograms, a report in lay terms will be sent to the patient. Approximately 15% of breast malignancies will not be visualized mammographically. In the management of a palpable breast mass, a negative mammogram must not discourage biopsy of a clinically suspicious lesion. Electronically Signed By: Domingo Franco M.D. [email or web address]:09/13/2020 07:46:47 ACR BI-RADS Category 1: Negative 3341F PARENCHYMAL PATTERN: (D) - The breast(s) demonstrate(s) heterogeneously dense fibroglandular andrew pena. BI-RADS CATEGORY: (1) - 1 RECOMMENDATION: (ANNUAL) - Recommend routine annual screening mammography. [id number] 1 year screening LATERALITY: (B)
== END 2020-09-12 14:27 | disposition home or self-care (01) ==
LOC: DI.S 14:26
DX: Z12.31 Encounter for screening mammogram for malignant neoplasm of breast (principal)

== ENCOUNTER 2020-10-19 10:38 | Outpatient (CLI) | payer BC ==
[2020-10-19 15:20] LABS: CALCIUM 8.8 mg/dL (8.5-10.3); CREATININE 0.8 mg/dL (0.4-1.0)
[2020-10-19 15:35] LABS: THYROID STIMULATING HORMONE 0.13 uIU/mL (0.34-5.60)
[2020-10-19 16:43] LABS: FREE T4 (FREE THYROXINE) 1.61 ng/dL (0.58-1.64)
== END 2020-10-19 10:39 | disposition home or self-care (01) ==
LOC: LAB.S 10:38
PROVIDERS: ATTEND Registered Nurse
DX: E03.9 Hypothyroidism, unspecified (principal); Z82.3 Family history of stroke
CPT/HCPCS: 36415; 80048; 84439; 84443

== ENCOUNTER 2020-11-24 14:27 | Outpatient (CLI) | payer BC ==
[2020-11-24 20:28] LABS: THYROID STIMULATING HORMONE 0.24 uIU/mL (0.34-5.60)
[2020-11-24 21:08] LABS: FREE T4 (FREE THYROXINE) 1.18 ng/dL (0.58-1.64)
== END 2020-11-24 14:28 | disposition home or self-care (01) ==
LOC: LAB.S 14:27
PROVIDERS: ATTEND Registered Nurse
DX: E03.9 Hypothyroidism, unspecified (principal); Z12.11 Encounter for screening for malignant neoplasm of colon
CPT/HCPCS: 36415; 84439; 84443

== ENCOUNTER 2021-03-14 16:44 | Outpatient (CLI) | payer BC | END 2021-03-14 23:59 | disposition home or self-care (01) | LOC: LAB.S 16:44 | PROVIDERS: ATTEND Physician Assistant Medical | DX: R05 Cough (principal); Z20.822 Contact with and (suspected) exposure to COVID-19 ==

== ENCOUNTER 2021-05-12 16:16 | Outpatient (CLI) | payer BC ==
[2021-05-12 20:21] LABS: T4 (THYROXINE) 6.9 ug/dL (6.09-12.23)
[2021-05-12 20:25] LABS: THYROID STIMULATING HORMONE 3.46 uIU/mL (0.34-5.60)
== END 2021-05-12 16:17 | disposition home or self-care (01) ==
LOC: LAB.S 16:16
PROVIDERS: ATTEND Registered Nurse
DX: E03.9 Hypothyroidism, unspecified (principal)
CPT/HCPCS: 36415; 84436; 84443; 84480

== ENCOUNTER 2021-07-21 16:10 | Outpatient (CLI) | payer BC ==
[2021-07-21 20:13] LABS: T4 (THYROXINE) 8.2 ug/dL (6.09-12.23)
[2021-07-21 20:17] LABS: THYROID STIMULATING HORMONE 0.28 uIU/mL (0.34-5.60)
== END 2021-07-21 16:11 | disposition home or self-care (01) ==
LOC: LAB.S 16:10
PROVIDERS: ATTEND Registered Nurse
DX: E03.9 Hypothyroidism, unspecified (principal)
CPT/HCPCS: 36415; 84436; 84443; 84480

== ENCOUNTER 2021-10-31 14:00 | Outpatient (CLI) | payer BC | END 2021-10-31 14:01 | disposition home or self-care (01) | LOC: LAB.S 14:00 | PROVIDERS: ATTEND Obstetrics & Gynecology | DX: E55.9 Vitamin D deficiency, unspecified (principal) | CPT/HCPCS: 36415; 82306 ==

== ENCOUNTER 2022-05-30 08:00 | Outpatient (CLI) | payer BC ==
--- NOTE | 2022-05-30 23:10 | XRAY Report ---
PROCEDURE: Knee 4 View LT INDICATIONS: LEFT KNEE PAIN TECHNIQUE: 4 views of the left knee(s) were acquired. COMPARISON: None. FINDINGS: Bones: Normal mineralization. No fracture. Mild medial compartment joint space loss and small periar ticular spurs. No suspicious bone lesions. Soft tissues: Small suprapatellar joint effusion. Small, possibly loose osteophytes seen anterior to the medial tibial spine. IMPRESSION: 1. Mild medial compartment osteoarthritic change. 2. Small joint effusion. 3. Possible intra-articular loose body adjacent to the medial compartment. Reviewed by: Yudy Medina MD on 05/30/2022 11:09 PM PST Approved by: Yudy Medina MD on 05/30/2022 11:09 PM PST Station ID: [id number]
== END 2022-05-30 23:59 | disposition home or self-care (01) ==
LOC: DI.S 08:00
PROVIDERS: ATTEND Physician Assistant
DX: M17.12 Unilateral primary osteoarthritis, left knee (principal); M25.462 Effusion, left knee

== ENCOUNTER 2022-05-30 14:31 | Outpatient (CLI) | payer BC ==
[2022-05-30 20:49] LABS: T4 (THYROXINE) 8.37 ug/dL (6.09-12.23)
[2022-05-30 20:53] LABS: THYROID STIMULATING HORMONE 0.49 uIU/mL (0.34-5.60)
== END 2022-05-30 14:32 | disposition home or self-care (01) ==
LOC: LAB.S 14:31
PROVIDERS: ATTEND Registered Nurse
DX: E03.9 Hypothyroidism, unspecified (principal); M17.12 Unilateral primary osteoarthritis, left knee; M25.462 Effusion, left knee
CPT/HCPCS: 36415; 84436; 84443; 84480

== ENCOUNTER 2022-07-11 13:33 | Outpatient (CLI) | payer MEDICARE, BC ==
--- NOTE | 2022-07-11 16:01 | MRI Report ---
PROCEDURE: KNEE WO - LT INDICATIONS: LEFT KNEE PAIN TECHNIQUE: Noncontrast sagittal PD fast spin echo and T2 fast spin echo with fat saturation, sagittal 3-D gradie nt sequence with fat saturation; coronal T1 spin echo and PD fast spin echo with fat saturation, and axial PD fast spin echo with fat saturation through the knee. COMPARISON: None. FINDINGS: Image quality: Excellent. Menisci: Peripheral displacement of medial meniscus bowing medial collateral ligament is seen. There is complex oblique tear involving body and posterior horn of medial meniscus extending to both superi or and inferior articulating surfaces. There is no evidence of focal lateral meniscal tear. High-grad e partial to focal full-thickness rupture involving posterior medial meniscal root ligament is seen. Cruciate ligaments: The anterior and posterior cruciate ligaments appear intact. Medial structures: The medial collateral ligament appears thickened with surrounding soft tissue dick ma. The posterior oblique ligament, semimembranosus tendon insertions, and oblique popliteal ligamen t, and meniscocapsular junction appear intact. Visualized portions of the pes anserinus tendons appe ar normal. No abnormal bursal fluid. Lateral structures: The lateral collateral ligament, long and short heads of the biceps femoris tend on appear intact. The popliteus tendon appears normal; the popliteofibular ligament appears intact. Iliotibial band appears normal. Anterior structures: Distal quadriceps tendinosis at its superior patella insertion is seen. Proximal patella tendinosis at its inferior patella insertion is noted. Patellar alignment is normal. No fem oral trochlear dysplasia or ventral trochlear prominence. No edema in the infrapatellar fat pad. Bones and cartilage: No bone marrow contusions or fractures. Mild to moderate tricompartmental osteo arthritis and chondromalacia is seen most notably in medial femoral tibial compartment and medial por tion of the patellofemoral compartment. Joint space: There is moderate to large amount of joint fluid, no gross intra-articular loose bodies .. No Curtis's cyst. Normal appearing synovial plicae are incidentally noted. IMPRESSION: 1. Peripheral displacement of medial meniscus with complex tear involving body and posterior horn of medial meniscus extending to both superior and inferior articulating surfaces. No evidence of focal l ateral meniscal tear. High-grade partial to full-thickness rupture involving posterior medial menisca l root ligament. 2. Cruciate ligaments are intact. Low-grade MCL sprain/partial thickness tear. 3. Distal quadriceps and proximal patella tendinosis at their patellar insertions. 4. Mild to moderate tricompartmental osteoarthritis and chondromalacia most notably in medial femoral tibial compartment and medial portion of patella femoral compartment. No fracture or dislocation. 5. Moderate to large joint effusion, no gross loose bodies. Reviewed by: Francis Pritchett MD on 07/11/2022 3:59 PM PST Approved by: rFancis Pritchett MD on 07/11/2022 3:59 PM PST Station ID: [id number]
== END 2022-07-11 13:34 | disposition home or self-care (01) ==
LOC: DI 13:33
PROVIDERS: ATTEND Physician Assistant
DX: S83.232A Complex tear of medial meniscus, current injury, left knee, initial encounter (principal); S83.412A Sprain of medial collateral ligament of left knee, initial encounter; M67.864 Other specified disorders of tendon, left knee; M17.12 Unilateral primary osteoarthritis, left knee; M22.42 Chondromalacia patellae, left knee; M25.462 Effusion, left knee

== ENCOUNTER 2023-05-16 10:27 | Outpatient (CLI) | payer MEDICARE, BC ==
[2023-05-16 15:12] LABS: BASOPHILS % (AUTO) 0.3 %; EOSINOPHILS # (AUTO) 0.2 10^3/uL (0.0-0.7); EOSINOPHILS % (AUTO) 2.5 %; HCT - HEMATOCRIT 40.3 % (37.0-47.0); HGB - HEMOGLOBIN 12.6 g/dL (12.0-16.0); LYMPHOCYTES # (AUTO) 1.6 10^3/uL (1.5-3.5); MEAN CORPUSCULAR HEMOGLOBIN 25.9 pg (27.0-31.0); MEAN CORPUSCULAR HGB CONC 31.3 g/dL (32.0-36.0); MEAN CORPUSCULAR VOLUME 82.9 fL (81.0-99.0); MEAN PLATELET VOLUME 10.1 fL (7.9-10.8); MONOCYTES # (AUTO) 0.6 10^3/uL (0.0-1.0); MONOCYTES % (AUTO) 8.9 %; PLT - PLATELET COUNT 329 10^3/uL (130-450); RED BLOOD COUNT 4.86 10^6/uL (4.20-5.40); RED CELL DISTRIBUTION WIDTH 14.6 % (12.0-15.0); WHITE BLOOD COUNT 6.3 x10^3/uL (4.8-10.8)
[2023-05-16 15:49] LABS: ALBUMIN 4.4 g/dL (3.2-5.5); ALBUMIN/GLOBULIN RATIO 1.8 (1.0-2.2); ALKALINE PHOSPHATASE 73 IU/L (42-121); ALT ALANINE AMINOTRANSFERASE 27 IU/L (10-60); AST ASPARTATE AMINOTRANSFERASE 24 IU/L (10-42); BILIRUBIN,TOTAL 0.5 mg/dL (0.2-1.0); BUN - BLOOD UREA NITROGEN 11 mg/dL (6-20); CALCIUM 9.5 mg/dL (8.5-10.3); CARBON DIOXIDE - CO2 29 mmol/L (21-32); CHLORIDE 104 mmol/L (101-111); CHOL/HDL RATIO 3.7 (<4.4); CHOLESTEROL 219 mg/dL; CREATININE 0.7 mg/dL (0.6-1.3); GFR - MDRD 83 (>89); GLUCOSE 95 mg/dL (74-104); HDL CHOLESTEROL 59 mg/dL; LDL CHOLESTEROL,CALCULATED 142 mg/dL; LDL/HDL RATIO 2.4 (<4.4); POTASSIUM 4.2 mmol/L (3.5-4.5); SODIUM 139 mmol/L (135-145); TOTAL PROTEIN 6.8 g/dL (6.4-8.9); TRIGLYCERIDES 90 mg/dL (48-352); VLDL CHOLESTEROL 18 mg/dL
[2023-05-16 15:53] LABS: THYROID STIMULATING HORMONE 0.13 uIU/mL (0.34-5.60)
== END 2023-05-16 10:28 | disposition home or self-care (01) ==
LOC: LAB.S 10:27
PROVIDERS: ATTEND Registered Nurse
DX: E03.9 Hypothyroidism, unspecified (principal); Z13.228 Encounter for screening for other metabolic disorders; Z13.220 Encounter for screening for lipoid disorders; Z13.29 Encounter for screening for other suspected endocrine disorder; Z13.0 Encounter for screening for diseases of the blood and blood-forming organs and certain disorders involving the immune mechanism
CPT/HCPCS: 36415; 80053; 80061; 83721; 84443; 85025

== ENCOUNTER 2023-11-12 08:00 | Outpatient (CLI) | payer MEDICARE, BC ==
[2023-11-12 19:41] LABS: BILIRUBIN,URINE NEGATIVE (NEGATIVE); GLUCOSE, URINE (UA) NEGATIVE (NEGATIVE); KETONES,URINE (UA) NEGATIVE (NEGATIVE); LEUKOCYTE ESTERASE, URINE MODERATE (NEGATIVE); NITRITE,URINE NEGATIVE (NEGATIVE); OCCULT BLOOD,URINE SMALL (NEGATIVE); PH,URINE 5.5 PH (5.0-7.5); PROTEIN,URINE NEGATIVE (NEGATIVE); UROBILINOGEN,URINE 0.2 (NORMAL) E.U./dL (NORMAL)
[2023-11-12 19:45] LABS: CLARITY,URINE CLOUDY (CLEAR)
[2023-11-12 20:12] LABS: BACTERIA,URINE Few /HPF (None Seen); SQUAMOUS EPITHELIAL CELL,UR FEW Squamous (<= Few)
== END 2023-11-12 23:59 | disposition home or self-care (01) ==
LOC: LAB 08:00
PROVIDERS: ATTEND Emergency Medicine
DX: R10.11 Right upper quadrant pain (principal)
CPT/HCPCS: 81001; 87086

== ENCOUNTER 2023-11-13 10:54 | Outpatient (CLI) | payer MEDICARE, BC ==
[2023-11-13 14:46] LABS: BASOPHILS % (AUTO) 0.6 %; EOSINOPHILS # (AUTO) 0.2 10^3/uL (0.0-0.7); EOSINOPHILS % (AUTO) 2.6 %; HGB - HEMOGLOBIN 12.7 g/dL (12.0-16.0); LYMPHOCYTES # (AUTO) 1.8 10^3/uL (1.5-3.5); LYMPHOCYTES % (AUTO) 28.1 %; MEAN CORPUSCULAR HEMOGLOBIN 26.2 pg (27.0-31.0); MEAN CORPUSCULAR HGB CONC 31.8 g/dL (32.0-36.0); MEAN CORPUSCULAR VOLUME 82.6 fL (81.0-99.0); MEAN PLATELET VOLUME 10.2 fL (7.9-10.8); MONOCYTES # (AUTO) 0.4 10^3/uL (0.0-1.0); MONOCYTES % (AUTO) 6.5 %; PLT - PLATELET COUNT 333 10^3/uL (130-450); RED BLOOD COUNT 4.84 10^6/uL (4.20-5.40); RED CELL DISTRIBUTION WIDTH 13.4 % (12.0-15.0); WHITE BLOOD COUNT 6.5 x10^3/uL (4.8-10.8)
[2023-11-13 15:40] LABS: ALBUMIN 4.4 g/dL (3.2-5.5); ALBUMIN/GLOBULIN RATIO 1.5 (1.0-2.2); BILIRUBIN,TOTAL 0.6 mg/dL (0.2-1.0); CALCIUM 9.9 mg/dL (8.5-10.3); CREATININE 0.7 mg/dL (0.6-1.3); POTASSIUM 4.2 mmol/L (3.5-4.5); TOTAL PROTEIN 7.3 g/dL (6.4-8.9)
== END 2023-11-13 10:55 | disposition home or self-care (01) ==
LOC: LAB.S 10:54
PROVIDERS: ATTEND Emergency Medicine
DX: R10.11 Right upper quadrant pain (principal)
CPT/HCPCS: 36415; 80053; 83690; 85025

== ENCOUNTER 2024-01-22 08:07 | Outpatient (CLI) | payer MEDICARE, BC ==
--- NOTE | 2024-01-22 16:59 | Ultrasound Report ---
PROCEDURE: Abdomen Limited INDICATIONS: RUQ PAIN TECHNIQUE: Real-time focused scanning was performed of the abdomen, with image documentation. COMPARISONS: None. FINDINGS: Liver: Increased liver echogenicity, commonly mild hepatic steatosis. Gallbladder: 3 mm polyp versus stone at the gallbladder neck. No wall thickening. Negative sonographi c Katz's sign. Biliary ducts: Intrahepatic bile ducts are non-dilated. Extrahepatic bile duct caliber measures 4 m m. Normal is 6-7 mm or less in diameter, or 10 mm or less post-cholecystectomy. Pancreas: Visualized portions of the pancreas are sonographically normal. Right kidney: Normal in size and echotexture. Right kidney measures 10.3 cm long. No hydronephrosis or nephrolithiasis. No solid masses. No complex renal cystic lesions which require follow-up. IVC: Intrahepatic inferior vena cava is patent. Miscellaneous: No free abdominal fluid. IMPRESSION: Increased liver echogenicity, commonly mild hepatic steatosis. 3 mm polyp versus stone at the gallbladder neck. No further follow-up is indicated based on size crit ersari. Reviewed by: Hudson Werner MD on 01/22/2024 4:57 PM PDT Approved by: Hudson Werner MD on 01/22/2024 4:57 PM PDT Station ID: [id number]
== END 2024-01-22 08:08 | disposition home or self-care (01) ==
LOC: DI 08:07
PROVIDERS: ATTEND Emergency Medicine
DX: R10.11 Right upper quadrant pain (principal)